=== PATIENT | female | born 1975 | race Caucasian/White ===

== ENCOUNTER 2018-12-12 14:58 | Inpatient (IN) | payer BC ==
[~2018-12-12] VITALS: Ht 172.7 cm; Wt 68.9 kg
--- NOTE | 2018-12-12 15:00 | NUR ---
AAOX3, CAME TO ER C/O NEAR SYNCOPE, WEAKNESS. RR IS EVEN AND UNLABORED WITH NAD NOTED. SKIN IS WARM AND DRY. AWAITING MD FOR EVAL.
[2018-12-12] MEDS ORDERED: IV NS 0.9% 1,000 ML BAG IV ONE (15:30)
[2018-12-12 15:44] LABS: BASOPHILS % (AUTO) 0.2 % (0.0-2.0); EOSINOPHILS % (AUTO) 1.2 % (0.0-6.0); HEMATOCRIT 44 % (33-45); HEMOGLOBIN 14.5 g/dL (11.5-14.8); LYMPHOCYTES # (AUTO) 1.8 /CMM (0.8-4.8); LYMPHOCYTES % (AUTO) 19.6 % (20.0-44.0); MEAN CORPUSCULAR HGB CONC 33 g/dl (31.0-36.0); MEAN CORPUSCULAR VOLUME 92 fL (82-100); MONOCYTES # (AUTO) 0.6 /CMM (0.1-1.30); MONOCYTES % (AUTO) 6.3 % (2.0-12.0); NEUTROPHILS # (AUTO) 6.6 /CMM (1.8-8.9); NEUTROPHILS % (AUTO) 72.7 % (43.0-81.0); PLATELET COUNT (AUTO) 208 /CMM (150-450); RED BLOOD CELL COUNT(AUTO) 4.72 MIL/uL (4.0-5.2); WHITE BLOOD COUNT (AUTO) 9.1 K/uL (4.3-11.0)
[2018-12-12 15:54] LABS: CALCIUM, SERUM 9.2 mg/dL (8.5-10.1); CARBON DIOXIDE 27 mmol/L (21-32); CHLORIDE 104 mmol/L (98-107); CREATININE 0.8 mg/dL (0.6-1.3); GLUCOSE 107 mg/dL (74-106); POTASSIUM 3.9 mmol/L (3.5-5.1); SODIUM SERUM 142 mmol/L (136-145); UREA NITROGEN, BLOOD 9 mg/dL (7-18)
[2018-12-12 15:59] LABS: ALANINE AMINOTRANSFERASE 14 U/L (12-78); ALBUMIN 3.8 g/dL (3.4-5.0); ALKALINE PHOSPHATASE 76 U/L (46-116); ASPARTATE AMINOTRANSFERASE 12 U/L (15-37); BILIRUBIN,DIRECT 0.1 mg/dL (0.0-0.2); BILIRUBIN,TOTAL 0.2 mg/dL (0.2-1.0); TOTAL PROTEIN, SERUM 7.5 g/dL (6.4-8.2)
--- NOTE | 2018-12-12 17:11 | NUR ---
CALLED FOR TELE BED
--- NOTE | 2018-12-12 17:16 | NUR ---
GOT BED 107
[2018-12-12] MEDS ORDERED: RIZA10TA27 PO (18:21)
--- NOTE | 2018-12-12 18:30 | NUR ---
Patient is resting comfortably in bed with eyes closed. Easily aroused. VSS
[2018-12-12] MEDS ORDERED: NORE7TAB PO (18:56)
--- NOTE | 2018-12-12 19:35 | NUR ---
REPORT GIVEN TO KIMBERLY KRAMER FOR [facility] TELE 107
[2018-12-12 20:00] VITALS: BP 122/69
[2018-12-12] MEDS ORDERED: MAGNESIUM HYDROXIDE 30 ML UDC PO PRN (20:00)
[2018-12-12] MEDS ORDERED: ACETAMINOPHEN 325 MG TABLET PO PRN (20:00)
--- NOTE | 2018-12-12 20:30 | NUR ---
SCANNING TECH ADMITTING NOTES RECEIVED REPORT FROM SPIN INSTRUCTOR. PATIENT ADMITTED TO ROOM 107 W/ DX SYNCOPE UNDER CARE OF PAT ELI NP. PATIENT A/A/O X4 & ABLE TO AMBULATE FROM GURNEY TO BED W/ STEADY GAIT. BREATHING EVEN & UNLABORED, TOLERATING ROOM AIR. SINUS RHYTHM NOTED ON TELE MONITOR. RIGHT AC IV #20 INTACT & PATENT W/ DRESSING CDI. DENIES ANY PAIN OR DISCOMFORT @ THIS TIME BUT C/O SLIGHT LIGHTHEADEDNESS. ORIENTED TO ROOM & INSTRUCTED TO USE CALL LIGHT FOR ASSISTANCE. AWAITING ADMITTING ORDERS. WILL CONTINUE TO MONITOR.
[2018-12-12 20:50] VITALS: BP 122/69
[2018-12-12 22:23] LABS: APPEARANCE,URINE CLEAR (CLEAR); BILIRUBIN,URINE NEGATIVE (NEGATIVE); BLOOD, URINE NEGATIVE Ery/uL (NEGATIVE); COLOR,URINE YELLOW (YELLOW); KETONES,URINE NEGATIVE (NEGATIVE); LEUKOCYTE ESTERASE ,URINE NEGATIVE (NEGATIVE); NITRITE, URINE NEGATIVE (NEGATIVE); PH,URINE 7.5 (5.0-8.0); PROTEIN,URINE NEGATIVE (NEGATIVE); UGLUCOSE NEGATIVE (NEGATIVE); UROBILINOGEN,URINE 0.2 EU/dL (0.2)
[2018-12-13] VITALS: BP 116/69
[2018-12-13 04:00] VITALS: BP 121/69
[2018-12-13] MEDS: IV NS 0.9% 1,000 ML IV PRN ×3 (05:44→23:51)
[2018-12-13 05:50] LABS: BASOPHILS % (AUTO) 0.2 % (0.0-2.0); EOSINOPHILS % (AUTO) 2.3 % (0.0-6.0); HEMATOCRIT 36 % (33-45); HEMOGLOBIN 12.1 g/dL (11.5-14.8); LYMPHOCYTES # (AUTO) 1.9 /CMM (0.8-4.8); LYMPHOCYTES % (AUTO) 31.7 % (20.0-44.0); MEAN CORPUSCULAR HGB CONC 34 g/dl (31.0-36.0); MEAN CORPUSCULAR VOLUME 92 fL (82-100); MONOCYTES # (AUTO) 0.5 /CMM (0.1-1.30); NEUTROPHILS # (AUTO) 3.5 /CMM (1.8-8.9); NEUTROPHILS % (AUTO) 57.8 % (43.0-81.0); PLATELET COUNT (AUTO) 149 /CMM (150-450); RED BLOOD CELL COUNT(AUTO) 3.92 MIL/uL (4.0-5.2); WHITE BLOOD COUNT (AUTO) 6.1 K/uL (4.3-11.0)
[2018-12-13 06:07] LABS: CALCIUM, SERUM 7.6 mg/dL (8.5-10.1); CREATININE 0.7 mg/dL (0.6-1.3); MAGNESIUM 1.6 mg/dL (1.8-2.4); PHOSPHORUS 3.4 mg/dL (2.5-4.9); POTASSIUM 3.7 mmol/L (3.5-5.1)
[2018-12-13 08:00] VITALS: BP 115/74
[2018-12-13] MEDS: HYDROCODONE/APAP 5/325MG 1 EACH TABLET PO PRN ×2 (10:34→16:17)
[2018-12-13] MEDS: ONDANSETRON HCL/PF 4 MG/2 ML VIAL IVP PRN ×3 (10:34→21:10)
[2018-12-13] MEDS: Magnesium 1GM/D5W 100ML PREMIX 100 ML IV SCH ×2 (11:24→12:55)
[2018-12-13 12:00] VITALS: BP_SYST 123; BP_SYST 145; BP_DIAS 73; BP_DIAS 81
[2018-12-13 16:00] VITALS: BP_SYST 145; BP_SYST 146; BP_DIAS 80; BP_DIAS 81
--- NOTE | 2018-12-13 16:48 | NUR ---
MRI BRAIN WILL BE DONE TODAY BETWEEN 5.30 OR 6PM PER [employer]ICER JARETT.
[2018-12-13] MEDS ORDERED: HYDROMORPHONE 1 MG/1 ML DISP.SYRIN IV ONE (19:00)
--- NOTE | 2018-12-13 19:08 | NUR ---
RN CLOSING NOTE PATIENT ALERT AND ORIENTED X4. MIGRAINE PAIN THROUGH OUT SHIFT. CT SCAN COMPLETE MD AWARE. MRI ATTEMPTED TO BE DONE THIG EVENING BUT PATIENT REFUSED. COMPLAINTS OF PAIN INCREASED MD AWARE, GAVE 1MG IVP DILAUDID. MAY GIVE IMITREX 25MG PO X1 IF DILAUDID IS INNEFECTIVE. CONTINUE TO MONITOR.
--- NOTE | 2018-12-13 19:50 | NUR ---
RN NOTE MRI MRI CONSENT SIGNED AND TO BE DONE [place] 12/14 08 CONSENT SIGNED AND IN CHART
[2018-12-13 20:00] VITALS: BP 130/50
[2018-12-13] MEDS: SUMATRIPTAN SUCCINATE 25 MG TABLET PO ONE ×2 (20:00→21:23)
[2018-12-13] MEDS ORDERED: SUMATRIPTAN SUCCINATE 6 MG/0.5 ML VIAL SQ ONE ×2 (23:00→23:46)
[2018-12-14] VITALS: BP 124/78
[2018-12-14 04:00] VITALS: BP 110/60
--- NOTE | 2018-12-14 04:42 | NUR ---
RN NOTES RECEIVED PATIENT IN BED COMPLAINING OF SEVERE HEADACHE. PATIENT HAS A HISTORY OF SIGNIFICANT MIGRAINE. WITH ORDER FOR IMITREX PO FOR MIGRAINE. PATIENT IS VERY NAUSEOUS AND VOMITING SMALL AMOUNT OF VOMITOUS ALMOST EVERY 10 TO 15 MINUTES. ZOFRAN ADMINISTERED, WITH HELP. PATIENT REFUSED IMITREX. SHE WAS UNABLE TO SWALLOW. CALLED MD AND OBTAINED ORDER FOR IMITREX 6MG IV PUSH, WITH RELIEF. PATIENT AND VERY APPRECIATIVE OF CARE.
[2018-12-14 08:00] VITALS: BP 122/56
[2018-12-14] MEDS ORDERED: ASPIRIN 81 MG TAB.CHEW PO SCH (09:00)
--- NOTE | 2018-12-14 11:11 | NUR ---
DISCHARGE SUMMARY. GIVEN DISCHARGE INSTRUCTIONS/ PRESCRIPTIONS TO PT AND AND VERBALIZED UNDERSTANDING. ALERT , DENIES ANY HEADACHE, VS STABLE. ABLE TO WALK WITHOUT ASSISTANCE WITH THE .
== END 2018-12-14 11:13 | disposition home or self-care (01) | DRG 310 ==
LOC: ER 15:00 → TELE1 17:49
PROVIDERS: ADMIT Nurse Practitioner Acute Care; ATTEND Nurse Practitioner Acute Care
DX: I49.3 Ventricular premature depolarization (principal); R55 Syncope and collapse; G43.909 Migraine, unspecified, not intractable, without status migrainosus; Z91.81 History of falling
CPT/HCPCS: 36415; 70450-TC; 70551-TC; 71045-TC; 80048-TC; 80061-TC; 80076-TC; 81000-TC; 83735-TC; 84100-TC; 84443-TC; 84484-TC; 84703-TC; 85025-TC; 85730-TC; 87081-TC; 93307-TC; 93880-TC; G0378; J1170; J2405; J3030; J3475; J7030